=== PATIENT | male | born 1980 | race African-American/Black ===

== ENCOUNTER 2024-07-16 20:05 | Emergency (ER) | payer OTHER ==
[2024-07-16] MEDS ORDERED: HYDROCODONE/APAP 10/325 TAB ONE (21:00)
[2024-07-16] MEDS ORDERED: IBUPROFEN 400 MG TAB ONE (21:00)
--- NOTE | 2024-07-16 21:32 | RAD REPORT ---
EXAMINATION: Ankle Right 3 View CLINICAL INDICATION: Male, 44 years old. PAIN COMPARISON: No prior exam. FINDINGS: No acute fracture. No malalignment/dislocation. Dorsal aspect calcaneal spur. Other: n/a IMPRESSION: No acute osseous abnormality.
--- NOTE | 2024-07-16 22:05 | RAD REPORT ---
Extremity Venous Uni Ltd CLINICAL INDICATION: Male, 44 years old.Pain;Swelling RIGHT TECHNIQUE: Complete duplex sonography of the lower extremity veins was performed of the affected limb . The examination included compression for vein patency, color Doppler imaging and flow augmentation in response to distal compression of the distal external iliac, common femoral, femoral, popliteal, peroneal, tibial and great saphenous veins. [id number]. COMPARISON: No prior exams FINDINGS: Duplex sonography imaging demonstrates all deep examined to be fully compressible with spontaneous, p hasic and augmented flow in the affected limb. IMPRESSION: No evidence of deep venous thrombosis in the right lower extremity.
--- NOTE | 2024-07-16 22:15 | EDPHYS ---
Physician Documentation [facility] Name: Mark Kat III Age: 44 yrs Sex: Male : 1980 Arrival Date: 07/16/2024 Time: 20:05 Bed 5 Private MD: Meliton Frias HPI: 07/16 20:55 This 44 yrs old Black Male presents to ER via Wheelchair with complaints of Leg Pain, cp Leg Swelling, Toe Injury. 20:55 The patient presents with pain, that is acute. The complaints affect the right calf and cp right Achilles. 20:55 Context: resulted from a mis-step, the patient can fully bear weight, the patient is cp able to ambulate, with moderate difficulty. Onset: The symptoms/episode began/occurred 2 day(s) ago. 20:55 Associated signs and symptoms: The patient has no apparent associated signs or symptoms.cp Historical: - Allergies: 20:37 No Known Allergies; ha1 - PMHx: 20:37 None; ha1 - Immunization history:: Adult Immunizations up to date. - Infectious Disease History:: Denies. - Social history:: Smoking status: Patient denies any tobacco usage or history of. ROS: 21:05 MS/extremity: Positive for pain, of the medial aspect of right heel and right Achilles cp and right calf, Negative for decreased range of motion, deformity, paresthesias, 21:05 Constitutional: HX per hpi cp 21:05 All other systems are negative, Exam: 21:10 Constitutional: The patient appears in no acute distress, alert, awake, well developed, cp well nourished, obese, uncomfortable, 21:10 Head/Face: Normocephalic, atraumatic. cp 21:10 Chest/axilla: Inspection: normal, 21:10 Cardiovascular: Rate: normal, 21:10 Respiratory: the patient does not display signs of respiratory distress, Respirations: normal, no use of accessory muscles, no retractions, Breath sounds: are clear throughout, no decreased breath sounds, 21:10 Abdomen/GI: Inspection: abdomen appears normal, 21:10 Back: pain, is absent, ROM is normal, 21:10 Musculoskeletal/extremity: Extremities: noted in the medial aspect of right heel and right Achilles and right calf: swelling, tenderness, There is no evidence of decreased ROM, deformity, ROM: limited passive range of motion due to pain, in the right ankle, Perfusion: the extremity is normally perfused throughout, Sensation intact. Tendon exam: postive for intact, tenderness of Achilles when palpated , 21:10 Skin: cellulitis, is not appreciated, no rash present. Vital Signs: 20:33 BP 161 / 99; Pulse 82; Resp 18 S; Pulse Ox 100% on R/A; Weight 122.47 kg; Height 5 ft. ha1 11 in. ; Pain 9/10; 22:15 BP 117 / 79; Pulse 72; Resp 17; Temp 97; Pulse Ox 99% ; Pain 2/10; bm8 20:33 Body Mass Index 37.66 (122.47 kg, 180.34 cm) ha1 20:33 Pain Scale: Adult ha1 22:15 Pain Scale: Adult bm8 [place] Coma Score: 20:26 Eye Response: spontaneous(4). Motor Response: obeys commands(6). Verbal Response: bm8 oriented(5). Total: 15. 22:15 Eye Response: spontaneous(4). Motor Response: obeys commands(6). Verbal Response: bm8 oriented(5). Total: 15. MDM: 20:17 Medical Screening Exam initiated cp 21:00 Differential diagnosis: dislocation, closed fracture, contusion, tendonitis, Achilles cp rupture. 22:13 Data reviewed: vital signs, nurses notes, radiologic studies, plain films, ultrasound, cp and as a result, I will discharge patient. 22:13 Counseling: I had a detailed discussion with the patient and/or guardian regarding the cp historical points, exam findings, and any diagnostic results supporting the discharge/admit diagnosis, radiology results, the need for outpatient follow up, a orthopedic surgeon, to return to the emergency department if symptoms worsen or persist or if there are any questions or concerns that arise at home. 07/16 20:52 Order name: US Extremity Venous Unilateral Ltd; Complete Time: 22:10 cp 07/16 22:10 Interpretation: Report reviewed. cp 07/16 20:52 Order name: XRAY Ankle RIGHT 3 view; Complete Time: 21:39 cp 07/16 21:39 Interpretation: Report reviewed. cp Administered Medications: 21:02 Drug: HYDROcodone-acetaminophen PO 10 mg-325 mg 1 tabs PO once Route: PO; bm8 22:17 Follow up: Response: No adverse reaction bm8 21:02 Drug: Ibuprofen PO 800 mg PO once Route: PO; bm8 22:16 Follow up: Response: No adverse reaction bm8 Disposition Summary: 07/16/24 22:14 Discharge Ordered Notes: Location: Home cp Problem: new cp Symptoms: have improved cp Condition: Stable cp Diagnosis - Strain of right Achilles tendon, initial encounter cp Followup: cp - With: Uirel Cochran MD - When: 1 week - Reason: pain continues Discharge Instructions: - Discharge Summary Sheet cp - Achilles Tendinitis cp - Muscle Strain cp - Muscle Pain, Adult cp - RICE Therapy for Routine Care of Injuries cp Forms: - Medication Reconciliation Form cp - Antibiotic Education cp - Prescription Opioid Use cp - Patient Portal Instructions cp - Leadership Thank You Letter cp Prescriptions: - Anaprox DS 550 mg Oral Tablet - take 1 tablet ORAL route every 12 hours As needed; 20 tablet; Refills: 0, cp Product Selection Permitted - Cyclobenzaprine 10 mg Oral Tablet - take 1 tablet ORAL route every 8 hours As needed; 30 tablet; Refills: 0, cp Product Selection Permitted Signatures: Dispatcher [employer] EDMS Meliton Mclaughlin PA PA cp Lauren Stinson, RN RN ha1 Blas Devine RN RN bm8 Corrections: (The following items were deleted from the chart) 20:52 20:52 Extremity Venous Uni Ltd+[email or web address] ordered. EDMS EDMS
--- NOTE | 2024-07-16 22:15 | ER ---
Nurse's Notes [facility] Name: Mark Kat III Age: 44 yrs Sex: Male : 1980 Arrival Date: 07/16/2024 Time: 20:05 Bed 5 Private MD: Diagnosis: Strain of right Achilles tendon, initial encounter Presentation: 07/16 20:33 Chief complaint: Patient states: I INJURED MY RIGHT FOOT AND TOE, LEG SWELLING. ha1 DIFFICULTY TO WALK AND BEAR WEIGHT ON THE AFFECTED FOOT. Coronavirus screen: Vaccine status: Patient reports being unvaccinated. Ebola Screen: No symptoms or risks identified at this time. Initial Sepsis Screen: Does the patient meet any 2 criteria? No. Patient's initial sepsis screen is negative. Does the patient have a suspected source of infection? No. Patient's initial sepsis screen is negative. Risk Assessment: Do you want to hurt yourself or someone else? Patient reports no desire to harm self or others. Onset of symptoms was July 16, 2024. 20:33 Method Of Arrival: Wheelchair ha1 20:33 Acuity: HÉCTOR 4 ha1 Historical: - Allergies: 20:37 No Known Allergies; ha1 - PMHx: 20:37 None; ha1 - Immunization history:: Adult Immunizations up to date. - Infectious Disease History:: Denies. - Social history:: Smoking status: Patient denies any tobacco usage or history of. Screenin:26 [facility] ED Fall Risk Assessment (Adult) History of falling in the last 3 months, bm8 including since admission No falls in past 3 months (0 pts) Confusion or Disorientation No (0 pts) Intoxicated or Sedated No (0 pts) Impaired Gait Yes (1 pt) Mobility Assist Device Used Yes (1 pt) Altered Elimination No (0 pt) Score/Fall Risk Level 0 - 2 = Low Risk Oriented to surroundings, Maintained a safe environment, Educated pt \T\ family on fall prevention, incl call for assistance when getting out of bed, Assessed \T\ reinforced patient's understanding of fall precautions, Hourly rounding (assess needs \T\ fall precautionary measures) done, Used ambulatory aids as needed (educated on \T\ assisted with), Used gait belt as appropriate. Abuse screen: Denies threats or abuse. Nutritional screening: No deficits noted. Tuberculosis screening: No symptoms or risk factors identified. Assessment: 20:26 General: Appears in no apparent distress. uncomfortable, Behavior is calm, cooperative, bm8 appropriate for age. Pain: Complains of pain in right medial malleolus, right Achilles and medial aspect of right heel Pain radiates to right leg Pain currently is 7 out of 10 on a pain scale. Quality of pain is described as aching, throbbing. Neuro: No deficits noted. Level of Consciousness is awake, alert, obeys commands, Oriented to person, place, time, situation, Appropriate for age. Cardiovascular: No deficits noted. Denies chest pain, Capillary refill < 3 seconds in bilateral fingers toes Patient's skin is warm and dry. Respiratory: Airway is patent Respiratory effort is even, unlabored, Respiratory pattern is regular, symmetrical. GI: No deficits noted. No signs and/or symptoms were reported involving the gastrointestinal system. : No deficits noted. No signs and/or symptoms were reported regarding the genitourinary system. EENT: No deficits noted. No signs and/or symptoms were reported regarding the EENT system. Derm: No deficits noted. No signs and/or symptoms reported regarding the dermatologic system. Musculoskeletal: Circulation, motion, and sensation intact. Capillary refill < 3 seconds, in bilateral fingers. Tenderness present in right foot Reports pain in right medial malleolus, right Achilles and medial aspect of right heel Pain is 7 out of 10 on a pain scale. 22:15 Reassessment: Patient appears in no apparent distress at this time. Patient and/or bm8 family updated on plan of care and expected duration. Pain level reassessed. Patient is alert, oriented x 3, equal unlabored respirations, skin warm/dry/pink. Patient states feeling better. Patient states symptoms have improved. Pain: Complains of pain in right Achilles Pain currently is 2 out of 10 on a pain scale. Vital Signs: 20:33 BP 161 / 99; Pulse 82; Resp 18 S; Pulse Ox 100% on R/A; Weight 122.47 kg; Height 5 ft. ha1 11 in. ; Pain 9/10; 22:15 BP 117 / 79; Pulse 72; Resp 17; Temp 97; Pulse Ox 99% ; Pain 2/10; bm8 20:33 Body Mass Index 37.66 (122.47 kg, 180.34 cm) ha1 20:33 Pain Scale: Adult ha1 22:15 Pain Scale: Adult bm8 [place] Coma Score: 20:26 Eye Response: spontaneous(4). Motor Response: obeys commands(6). Verbal Response: bm8 oriented(5). Total: 15. 22:15 Eye Response: spontaneous(4). Motor Response: obeys commands(6). Verbal Response: bm8 oriented(5). Total: 15. ED Course: 20:10 Patient arrived in ED. [id number] 20:17 Meliton Mclaughlin PA is PHCP. cp 20:17 Meliton Wei MD is Attending Physician. cp 20:19 Blas Devine, RN is Primary Nurse. bm8 20:26 Patient has correct armband on for positive identification. Call light in reach. Side bm8 rails up X 1. Client placed on continuous cardiac and pulse oximetry monitoring. NIBP monitoring applied. Pulse ox on. NIBP on. Door closed. Noise minimized. Warm blanket given. Pillow given. Verbal reassurance given. Head of bed elevated. 20:37 Triage completed. ha1 21:27 XRAY Ankle RIGHT 3 view In Process Unspecified. EDMS 21:57 US Extremity Venous Unilateral Ltd In Process Unspecified. EDMS 22:12 Uriel Cochran MD is Referral Physician. cp 22:15 Provided Education on: post er care. bm8 22:15 No provider procedures requiring assistance completed. Patient did not have IV access bm8 during this emergency room visit. 22:18 Arm band placed on right wrist. bm8 Administered Medications: 21:02 Drug: HYDROcodone-acetaminophen PO 10 mg-325 mg 1 tabs PO once Route: PO; bm8 22:17 Follow up: Response: No adverse reaction bm8 21:02 Drug: Ibuprofen PO 800 mg PO once Route: PO; bm8 22:16 Follow up: Response: No adverse reaction bm8 Medication: 20:26 VIS not applicable for this client. bm8 Outcome: 22:14 Discharge ordered by . cp 22:18 Discharged to home ambulatory, bm8 22:18 Condition: stable 22:18 Discharge instructions given to patient, Instructed on discharge instructions, follow up and referral plans. medication usage, safety practices, Demonstrated understanding of instructions, follow-up care, medications, Prescriptions given X 1, 22:36 Patient left the ED. bm8 Signatures: Dispatcher [employer] EDMS Meliton Mclaughlin, PA PA cp Jesenia, Huong [id number] Lauren Stinson, RN RN ha1 Blas Devine RN RN bm8
[2024-07-16 22:58] VITALS: BP 117/79; TEMP 97; O2SAT 99
== END 2024-07-16 22:36 | disposition home or self-care (01) ==
LOC: ER 20:05
DX: S86.011A Strain of right Achilles tendon, initial encounter (principal)
CPT/HCPCS: 93971; 99284